=== PATIENT | male | born 1955 | race African-American/Black ===

== ENCOUNTER 2019-03-22 17:01 | Emergency (ER) | payer OTHER ==
[~2019-03-22] VITALS: Ht 177.8 cm; Wt 120.2 kg
[~2019-03-22 17:01] MED LIST: CARDURA; DARVOCET-N 1001 EACH PO; LOTENSIN; VICODIN 5-5001 EACH PO
[2019-03-22] MEDS ORDERED: MOBIC7.5 MG PO (18:11)
[2019-03-22 19:35] VITALS: BP 168/96
== END 2019-03-22 19:37 | disposition home or self-care (01) ==
LOC: ER 17:01
DX: M70.22 Olecranon bursitis, left elbow (principal); I10 Essential (primary) hypertension

== ENCOUNTER → 2020-12-16 | Outpatient (CLI) | payer OTHER ==
[~2020-12-16] MED LIST changes: +ASA81BEC PO; +BENAZEPRIL HCL40 MG PO; +CINNAMON500 MG PO; +D3-501250 MCG PO; +DOXAZOSIN MESYLA2 MG PO; +GARLIC1 EACH PO; +MOBIC7.5 MG PO; +TESTOSTERONE BOOSTER PO; +VITAMIN B-12 PO; +VITAMIN D3125 MCG PO
[2020-12-16 12:05] LABS: HEMATOCRIT 42.9 % (42.0-52.0); HEMOGLOBIN 14.2 gm/dL (14.0-18.0); MCH 28.7 pg (26.0-34.0); MCHC 33.2 g/dL (28.0-37.0); MCV 86.6 fL (80.0-100.0); RBC 4.96 mil/uL (4.50-6.00); RDW 14.4 % (10.5-14.5); WBC 4.5 thou/uL (4.0-11.0)
[2020-12-16 12:24] LABS: INR 1.1; PROTIME 11.3 Seconds (9.3-11.4)
[2020-12-16 12:25] LABS: URINE BILIRUBIN NEGATIVE (Negative); URINE BLOOD NEGATIVE (Negative); URINE CLARITY CLEAR; URINE COLOR YELLOW; URINE GLUCOSE-RANDOM* NEGATIVE (Negative); URINE KETONES NEGATIVE (Negative); URINE LEUKOCYTES-REFLEX NEGATIVE (Negative); URINE NITRITE-REFLEX NEGATIVE (Negative); URINE PROTEIN (DIPSTICK) NEGATIVE (Negative); URINE UROBILINOGEN 0.2 E.U./dl (0.2-1.0)
[2020-12-16 12:29] LABS: ALBUMIN 3.9 g/dL (3.4-5.0); CREATININE 1.4 mg/dL (0.7-1.3); POTASSIUM 4.3 mmol/L (3.5-5.1); TOTAL BILIRUBIN 0.3 mg/dL (0.2-1.0); TOTAL PROTEIN 7.7 g/dL (6.4-8.2)
--- NOTE | 2020-12-16 14:59 | EKG ---
[place] [address] [facility] [place] [address] ELECTROCARDIOGRAM REPORT Name: KATIANGEL WRIGHT Room #: REG [facility]#: [id number] Admission: 12/16/20 Attend Phys: Dhiraj Dior MD Discharge: Date of : 53 Report #: [id number] [facility] Test Date: 2020-12-16 Test Time: 11:38:21 Pat Name: ANGEL PARIKH Department: Room: Gender: Culinary Artist: AQUILES : 1955 Requested By: Dhiraj Dior Order Number: [id number] MD: Denton Christine Measurements Intervals [place] Rate: 89 P: 42 MN: 214 QRS: -27 QRSD: 95 T: 33 QT: 371 QTc: 452 Interpretive Statements Sinus rhythm Borderline prolonged MN interval Borderline left axis deviation Compared to ECG 03/09/2009 14:01:07 Inferior Q waves no longer present T-wave abnormality no longer present Electronically Signed On 12-16-2020 14:58:49 CDT by Denton Christine [email or web address] <ELECTRONICALLY SIGNED> By: Denton Christine MD, [facility] 12/16/20 1458 1138 1138 Denton Christine MD, FAC /EPI
== END ==
LOC: PAC 10:27
PROVIDERS: ATTEND Orthopaedic Surgery
DX: Z01.812 Encounter for preprocedural laboratory examination (principal); Z01.810 Encounter for preprocedural cardiovascular examination; M16.12 Unilateral primary osteoarthritis, left hip

== ENCOUNTER 2020-12-27 06:15 | Inpatient (IN) | payer OTHER ==
[~2020-12-27] VITALS: Ht 157.5 cm; Wt 124.7 kg
[2020-12-27 07:24] VITALS: BP 153/101
--- NOTE | 2020-12-27 12:38 | NUR ---
PT ADMITED FROM ER. ADMISSION HX AND ASSESSMENT COMPLETED. PT ALERT AND ORIENTED. REPORT LEFT HIP PAIN A 06/05. ELEVATED BP. PRIMARY NURSE NEERAJ NOTIFIED. REGINALD DRESSING IN PLACE C/D/I. ACDS ON.
--- NOTE | 2020-12-27 16:58 | NUR ---
Visited with patient. Left hip. Intro to cm and dcp. Lives at home with , few steps to enter home and then no stair inside. has walker already. Mange own medication. drives vehicle. [facility]. Anticipates getting to go home tomorrow after he works on steps with therapy.
--- NOTE | 2020-12-27 18:53 | NUR ---
A/O X 4. ON 2 L 02 POST OP VIA NASAL CANNULA. LEFT HIP DRESSING REGINALD DRAIN. BILATERAL TEDS AND SCDS ON. LEFT HAND IV @ D5 1/2 NS @ 100 MLS/HR. ICE PACK LEFT HIP. NORCO GIVEN FOR PAIN.
[2020-12-27 19:29] VITALS: BP 176/99
[2020-12-27 23:42] VITALS: BP 146/93
--- NOTE | 2020-12-28 01:49 | NUR ---
LEFT HIP WITH REGINALD DRSG C/D/I. TEDS AND SCDS IN PLACE. HE STOOD UP TO URINATE. DENIES ANY N/V. BP BETTER. GIVEN NORCO FOR PAIN.DENIES FURTHER NEEDS.
[2020-12-28 04:39] VITALS: BP 147/89
[2020-12-28 07:12] VITALS: BP 147/90
[2020-12-28 08:43] VITALS: BP 142/90
--- NOTE | 2020-12-28 13:50 | NUR ---
Pt A & O x4. Pt vs stable. pt received medications as ordered. Pt received discharge orders to home. Pt discharge instructions reviewed with pt and pt verbalized understanding and signed instructions. Pt awaiting ride home.
--- NOTE | 2020-12-28 14:43 | NUR ---
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 pt wheeled to front enterence in wheelchAir by staff with personal belongings and left hospital without incident in private vehicle
--- NOTE | 2020-12-30 10:28 | O ---
[facility] [place] [address] OPERATIVE REPORT Name: ANGEL KHAN JR Room #: 442-P [facility] IN M.R.#: [id number] Admission: 12/27/20 Attend Phys: Dhiraj Dior MD Discharge: 12/28/20 Date of : 53 Report #: [id number] THIS REPORT FOR: cc: LEEANNE TYSON MD, OSSAMA MD Abraham,Dhiraj Mullen MD ~ DATE OF SERVICE: 12/27/2020 PREOPERATIVE DIAGNOSIS: Left hip osteoarthritis. POSTOPERATIVE DIAGNOSIS: Left hip osteoarthritis. PROCEDURE: Left total hip arthroplasty. SURGEON: Dhiraj Dior MD. CARPENTER ASSISTANT: Ghazala Rouse PA-C. INDICATION FOR CARPENTER ASSISTANT: Throughout the case, extensive retraction, manipulation of the hip was required including dislocation and reduction. This was afforded to me by my cook's assistant. ANESTHESIA: LMA. IMPLANTS: A [employer] size 10 high offset Synergy press-fit stem, size 56 R3 acetabular cup with one acetabular screw and a size 40+4 Oxinium head. ESTIMATED BLOOD LOSS: 150 mL. COMPLICATIONS: None. SPECIMENS: None. CONDITION UPON LEAVING THE OR: Stable. INDICATIONS FOR PROCEDURE: The patient is a 65-year-old gentleman with severe left hip osteoarthritis. He had failed conservative measures for this and after discussion with him, he elected for left total hip arthroplasty. DESCRIPTION OF PROCEDURE: Risks, benefits, alternatives, complications were discussed in detail with the patient including but not limited to risk of anesthesia, risk of damage to nerves, arteries, blood vessels, risk for infection, bleeding, risk for leg length discrepancy, instability and need for reoperation. Informed consent was obtained from the patient. Left hip was appropriately marked in the preoperative holding area. IV Ancef was given for preoperative antibiotics. He was brought to the operating room and placed in [address] [address] OPERATIVE REPORT Name: ANGEL KHAN JR Room #: 442-P [facility] IN ..#: [id number] Admission: 12/27/20 Attend Phys: Dhiraj Dior MD Discharge: 12/28/20 Date of : 53 Report #: [id number] the supine position on the operating room table. LMA anesthesia was induced without complication. He was then placed in the right lateral decubitus position with the left hip uppermost. Left hip was then prepped and draped in normal sterile fashion. Timeout was performed properly identifying the patient and procedure as well as instrumentation. All in the operating room were in agreement. Standard posterior approach to the hip was made with 10 blade through the skin. Dissection was taken down to the fascia with Bovie cautery and Samuels elevator was used to clean off the fascia. Fresh 10 blade was used to make a fascial incision. This was taken proximally and distally with curved Malin scissor. Charnley retractor was placed. Trochanteric bursa was taken down with Bovie cautery. Piriformis tendon was identified, tagged and taken down with Bovie. Short external rotators were also taken down with Bovie cautery. Capsulotomy was made and capsule ends were tagged for later repair. Hip was dislocated. There was extensive osteoarthritic change of the femoral head. Femoral neck cut was made 1 cm proximal to the lesser trochanter based on preoperative templating. The femoral head was removed. Deep acetabular retractors were placed. Labrum was removed sharply. Pulvinar was removed with Bovie cautery. Acetabulum was then sequentially reamed up to a size 56, at which point there was excellent bleeding cancellous bone. A size 55 trial cup was placed, found to have a good fit. A final size 56 R3 acetabular cup was placed and seated. One acetabular screw was placed for backup fixation and polyethylene liner for a size 40 head was placed. Attention was then turned to the femur. This was reamed and broached up to a size 10, at which point the size 10 broach was stable. This was trialed with a high offset neck and a 40+0 head. Hip was reduced, taken through range of motion, found to be stable, found to be somewhat short on the left compared to the right. It was felt we could make up for this with the final implant. Hip was dislocated. Broach was removed. A single Arthrex cerclage tape was placed around the proximal femur for prophylactic fixation and a final size 10 high offset Synergy press-fit stem was placed and seated. This was trialed with a size 40+4 head. Hip was reduced, taken through range of motion, found to be stable, found to have equal leg lengths. Hip was dislocated and a final size 40+4 Oxinium head was placed. Hip was reduced, taken through range of motion, found to be stable, found to have equal leg lengths. Hip was thoroughly irrigated with normal saline. A periarticular injection consisting of morphine, ropivacaine, epinephrine, Toradol was placed and around the hip joint capsule. A gram of vancomycin was placed deep in the joint. The capsule and piriformis were repaired with 0 FiberWire. Fascia was closed with 0 Vicryl. Skin was closed with 2-0 Vicryl, skin staple and a REGINALD dressing was applied. The [address] [address] OPERATIVE REPORT Name: ANGEL KHAN JR Room #: 442-P [facility] IN .R.#: [id number] Admission: 12/27/20 Attend Phys: Dhiraj Dior MD Discharge: 12/28/20 Date of : 53 Report #: [id number] patient tolerated this procedure well and went to recovery room under care of anesthesia postoperatively. <ELECTRONICALLY SIGNED> By: Dhiraj Dior MD 12/30/20 1028 1116 1214 Dhiraj Dior MD /nt
== END 2020-12-28 15:16 | disposition home or self-care (01) | DRG 470 ==
LOC: 4S 06:15 → TBA 06:15 → OR 06:15 → EDSTATUS 10:03 → ADMC 13:13 → OR 14:55 → 4S 12-28 15:16 → ADMC 12-29 06:44
PROVIDERS: ADMIT Orthopaedic Surgery; ATTEND Orthopaedic Surgery
PROC: 0SRB06A Replacement of Left Hip Joint with Oxidized Zirconium on Polyethylene Synthetic Substitute, Uncemented, Open Approach (ICD-10-PCS; principal; 2020-12-27)
DX: M16.12 Unilateral primary osteoarthritis, left hip (principal); Z20.822 Contact with and (suspected) exposure to COVID-19; Z88.8 Allergy status to other drugs, medicaments and biological substances
CPT/HCPCS: 10102; 50010; 50101; 50382; 50414; 51412; 53000; 53078; 53368; 56524; 56528; 56530; 57095; 57103; 57978; 57979; 62110; 62900